=== PATIENT | female | born 1990 | race African-American/Black ===

== ENCOUNTER 2021-07-17 17:08 | Emergency (ER) | payer OTHER ==
[~2021-07-17] VITALS: Ht 170.2 cm; Wt 753.0 kg
[2021-07-17] MEDS ORDERED: IBUP-1955 PO (17:44)
--- NOTE | 2021-07-17 17:44 | NUR ---
DR SIMONS AT BEDSIDE FOR EVALUATION.
[2021-07-17] MEDS ORDERED: ACETAMINOPHEN ES 500 MG TABLET ONE (17:55)
--- NOTE | 2021-07-17 18:23 | NUR ---
PT MEDICATED FOR PAIN AND FEVER PER MD ORDER. DISCHARGE INSTRUCTIONS GIVEN.
[2021-07-17] MEDS ORDERED: ACETAMINOPHEN 325 MG TABLET PO ONE (18:30)
== END 2021-07-17 18:24 | disposition home or self-care (01) ==
LOC: ER 17:14
DX: U07.1 COVID-19 (principal); M79.10 Myalgia, unspecified site; B34.9 Viral infection, unspecified; Z79.1 Long term (current) use of non-steroidal anti-inflammatories (NSAID)
CPT/HCPCS: 87400; A4663; A9150